=== PATIENT | female | born 1965 | race African-American/Black ===

== ENCOUNTER → 2016-10-22 | Outpatient (CLI) | payer OTHER ==
[~2016-10-22] MED LIST: AMLO5TAB22 PO; HYDR-2768 PO; LISI-357 PO; LOPE-1 PO; OXYC-360 PO; PREN0.01 PO; SCOP1PAT TD; ZOFR8TAB4 SL; [UNRECOGNIZED DRUG - OTHER] PO
[2016-10-22 07:28] LABS: ALT (GPT) 22 U/L (10-53); AMYLASE 35 U/L (25-115); ANION GAP 8 MEQ/L (5-15); AST (GOT) 7 U/L (15-37); BICARBONATE 29.2 MEQ/L (21.0-32.0); BLOOD UREA NITROGEN 13 MG/DL (7-18); CHLORIDE 103 MEQ/L (98-107); GAMMA GT 27 U/L (5-55); GLOMERULAR FILTRATION RATE 109 ML/MIN (>89); GLUCOSE,FASTING 114 MG/DL (74-99); POTASSIUM 3.9 MEQ/L (3.5-5.1); SODIUM (NA) 140 MEQ/L (136-145)
[2016-10-22 07:32] LABS: ALKALINE PHOSPHATASE 54 U/L (45-117); TOTAL BILIRUBIN ADULT 0.8 MG/DL (0.2-1.0)
[2016-10-22 07:42] LABS: AUTOMATED NEUTROPHIL # 1.2 TH/MM3 (1.8-7.7); BASOPHIL % 1.2 % (0.0-2.0); EOSINOPHIL # 0.1 TH/MM3 (0-0.4); EOSINOPHIL % 2.8 % (0.0-4.0); HEMATOCRIT 37.6 % (35.0-46.0); LYMPHOCYTE # 1.7 TH/MM3 (1.0-4.8); MEAN CELL VOLUME 91.6 FL (80.0-100.0); MEAN CORPUSCULAR HEMOGLOBIN 30.3 PG (27.0-34.0); MEAN CORPUSCULAR HGB CONC 33.1 % (32.0-36.0); MONO % 7.4 % (0.0-8.0); NEUT % 36.6 % (16.0-70.0); PLATELET COUNT 200 TH/MM3 (150-450); RED CELL DISTRIBUTION WIDTH 13.3 % (11.6-17.2); WHITE BLOOD COUNT 3.3 TH/MM3 (4.0-11.0)
[2016-10-22 07:52] LABS: HEMO FLAGS DIFF FINAL
[2016-10-22 10:47] LABS: HEMOGLOBIN A1b 0.8 %; HEMOGLOBIN Ao 85.4 %; HEMOGLOBIN LA1C 1.9 %; HEMOGLOBIN P3 3.5 %
== END ==
LOC: CLAB 06:36
PROVIDERS: ATTEND Family Medicine
DX: R10.9 Unspecified abdominal pain (principal)
CPT/HCPCS: 36415; 80053; 82150; 82248; 82977; 83036; 83690; 85025

== ENCOUNTER → 2017-04-28 | Outpatient (CLI) | payer OTHER ==
[~2017-04-28] MED LIST changes: +AMLO5TAB2 PO; -AMLO5TAB22 PO; +CHLORHEXIDINE GLUCONATE 2 % 1 PACK (2 CLOTHS) TOPICAL PRN; +CLEO1GEL TOPICAL; +FERRTAB2 PO; -HYDR-2768 PO; +HYDR25TA5 PO; +INSULIN HUMAN REGULAR 1,000 UNITS/10 ML VIAL SQ PRN; +LACTATED RINGER'S 1000 ML IV PRN; -LISI-357 PO; +LISI-519 PO; +METOPROLOL TARTRATE 25 MG TAB PO PRN; -OXYC-360 PO; +POVIDONE IODINE 5% (ANTISEPSIS KIT) 4 APPLICATIONS EACH NARE PRN; -PREN0.01 PO; +PROPOFOL 200 MG/20 ML AMP IV ONE; -SCOP1PAT TD; +SCOP1PAT2 T-DERMAL; +SODIUM CHLORID 0.9% 500 ML IV PRN; -[UNRECOGNIZED DRUG - OTHER] PO
[2017-04-28 11:00] VITALS: BP 151/85; PULSE 68; RESP 20; TEMP 98.7; O2SAT 98
--- NOTE | 2017-04-28 14:05 | MR ---
cc: TOMASZ SHERIFF M.D. DATE: 04/28/2017 DATE OF : 1965 PROCEDURE: Upper endoscopy, biopsy. Colonoscopy. INDICATIONS FOR PROCEDURE: 1. Evaluation of abdominal pain. 2. History of anemia. 3. Family history of colorectal cancer in first degree relative. PHOTOGRAPHS AND BIOPSIES: Photographs were taken. PREMEDICATION: Administered by Anesthesiology. MONITORING: Monitoring was accomplished with pulse oximeter, EKG and blood pressure monitor. PROCEDURE NOTE: After informed consent was obtained and the procedure, risks and benefits were explained, including the risks of bleeding, sepsis, perforation, and risks of anesthesia, the patient was placed in the left lateral position. The video endoscope was inserted in the esophagus under direct visualization. The esophagus appeared to be normal throughout with a normal Z-line. The stomach was entered. The gastric mucosa was unremarkable as well. In a retroflex view the cardia and fundus were unremarkable. The scope was passed through the pyloric ring into the first, second and third portion of the duodenum. The duodenal mucosa was unremarkable. Two biopsies were taken of the duodenal mucosa to rule out celiac sprue. The scope was gradually withdrawn. The patient was repositioned. The video colonoscope was inserted in the rectum, passed easily to the cecal position in the usual fashion. The terminal ileum was briefly visualized as well. The scope was then gradually withdrawn. The mucosa throughout appeared to be grossly normal, without any space-occupying lesions. In the rectum the scope was retroflexed and grade 1 internal hemorrhoids were noted without active bleeding. The scope was removed and she was sent to the recovery room in stable condition. No immediate complications were noted. IMPRESSION: 1. Essentially benign upper endoscopy and colonoscopy evaluation as outlined above. 2. Small bowel biopsies were taken for celiac sprue. 3. Otherwise the rest of the examinations did not require biopsy or further evaluation. PLAN: 1. We will follow the biopsies taken today to rule out celiac sprue. 2. We will follow up clinically as an outpatient. 3. Recommend repeat colonoscopy within 5 years for increased risk due to the family history of colorectal cancer. 4. Would suggest followup of CBC as well. 5. Will discuss with the patient. MD SILVIO Farrell/MARLYS /1:47 PM /1:52 PM
[2017-04-28 14:15] VITALS: BP 165/80; PULSE 65; RESP 20; TEMP 98.6; O2SAT 100
== END ==
LOC: HEND 09:40
PROVIDERS: ATTEND Internal Medicine Gastroenterology
DX: R10.9 Unspecified abdominal pain (principal); D64.9 Anemia, unspecified; Z80.0 Family history of malignant neoplasm of digestive organs; K64.8 Other hemorrhoids
CPT/HCPCS: 88305

== ENCOUNTER → 2017-07-23 | Outpatient (CLI) | payer OTHER ==
[~2017-07-23] MED LIST changes: -CHLORHEXIDINE GLUCONATE 2 % 1 PACK (2 CLOTHS) TOPICAL PRN; -INSULIN HUMAN REGULAR 1,000 UNITS/10 ML VIAL SQ PRN; -LACTATED RINGER'S 1000 ML IV PRN; -LISI-519 PO; -LOPE-1 PO; -METOPROLOL TARTRATE 25 MG TAB PO PRN; -POVIDONE IODINE 5% (ANTISEPSIS KIT) 4 APPLICATIONS EACH NARE PRN; -PROPOFOL 200 MG/20 ML AMP IV ONE; -SCOP1PAT2 T-DERMAL; -SODIUM CHLORID 0.9% 500 ML IV PRN; -ZOFR8TAB4 SL
[2017-07-23 09:37] LABS: AUTOMATED NEUTROPHIL # 1.2 TH/MM3 (1.8-7.7); BASOPHIL % 1.4 % (0.0-2.0); EOSINOPHIL # 0.1 TH/MM3 (0-0.4); EOSINOPHIL % 2.3 % (0.0-4.0); HEMATOCRIT 35.1 % (35.0-46.0); HEMO FLAGS DIFF FINAL; LYMPH % 52.6 % (9.0-44.0); LYMPHOCYTE # 1.7 TH/MM3 (1.0-4.8); MEAN CELL VOLUME 92.2 FL (80.0-100.0); MEAN CORPUSCULAR HEMOGLOBIN 30.8 PG (27.0-34.0); MEAN CORPUSCULAR HGB CONC 33.5 % (32.0-36.0); MONO % 8.3 % (0.0-8.0); NEUT % 35.4 % (16.0-70.0); PLATELET COUNT 203 TH/MM3 (150-450); RED BLOOD COUNT 3.81 MIL/MM3 (4.00-5.30); RED CELL DISTRIBUTION WIDTH 13.9 % (11.6-17.2); WHITE BLOOD COUNT 3.3 TH/MM3 (4.0-11.0)
== END ==
LOC: CLAB 08:52
PROVIDERS: ATTEND Internal Medicine Gastroenterology
DX: D64.9 Anemia, unspecified (principal)
CPT/HCPCS: 36415; 85025